=== PATIENT | male | born 1980 | race Caucasian/White ===

== ENCOUNTER → 2016-10-10 | Outpatient (CLI) | payer BC ==
[2016-10-10 13:25] LABS: CHLORIDE,CL 108 mmol/L (98-110); SODIUM,NA 146 mmol/L (136-146)
== END ==
LOC: MW.CHFP 12:12
PROVIDERS: ATTEND Emergency Medicine
DX: E10.9 Type 1 diabetes mellitus without complications (principal)
CPT/HCPCS: 36415; 80048; 80061; 83036

== ENCOUNTER 2017-12-10 20:55 | Emergency (ER) | payer BC, SELFPAY ==
[2017-12-10] MEDS ORDERED: Ketorolac 60 MG/2 ML SDV IM ONE (21:09)
--- NOTE | 2017-12-10 21:11 | EDM.PDOC ---
ED HPI GENERAL MEDICAL PROBLEM - General Chief Complaint: Chest Pain Stated Complaint: POSSIBLE BROKEN RIBS, SORE RIGHT WRIST Time Seen by Provider: 12/10/17 21:03 - History of Present Illness INITIAL COMMENTS - FREE TEXT/NARRATIVE: HISTORY AND PHYSICAL: History of present illness: Patient 37-year-old white male presents with a concern of right wrist and left rib injuries that occurred when he was carrying some pallets and fell he denies other trauma or concern he denies abdominal pain or neck pain or trauma Review of systems: As per history of present illness and below otherwise all systems reviewed and negative. Past medical history: As per history of present illness and as reviewed below otherwise noncontributory. Surgical history: As per history of present illness and as reviewed below otherwise noncontributory. Social history: No reported history of drug or alcohol abuse. Family history: As per history of present illness and as reviewed below otherwise noncontributory. Physical exam: HEENT: Atraumatic, normocephalic, pupils reactive, negative for conjunctival pallor or scleral icterus, mucous membranes moist, throat clear, neck supple, nontender, trachea midline. Lungs: Clear to auscultation, breath sounds equal bilaterally, chest with tenderness in the left rib area 2 through 8 in anteroaxillary line crepitation. Heart: S1S2, regular, negative for clicks, rubs, or JVD. Abdomen: Soft, nondistended, nontender. Negative for masses or hepatosplenomegaly. Negative for costovertebral tenderness. Pelvis: Stable nontender. Genitourinary: Deferred. Rectal: Deferred. Extremities: Right wrist has some mild tenderness over the dorsal aspect is no snuffbox tenderness CMS neurovascular exam is unremarkable there's no crepitation or gross deformity Neuro: Awake, alert, oriented. Cranial nerves II through XII unremarkable. Cerebellum unremarkable. Motor and sensory unremarkable throughout. Exam nonfocal. Diagnostics: X-ray left ribs with chest and x-ray right wrist Therapeutics: Toradol 60 mg IM Impression: #1 left rib injury #2 right wrist injury Definitive disposition and diagnosis as appropriate pending reevaluation and review of above. - Related Data Allergies Allergy/AdvReac Type Severity Reaction Status Date / Time ranitidine HCl [From Zantac] Allergy Hives Verified 06/03/15 06:10 Home Meds: Home Meds Insulin Glarg,Human.Rec.Analog [Lantus] 30 units SQ BEDTIME 06/03/15 [History] Insulin Lispro [HumaLOG] 0 units SQ TIDAC 06/03/15 [History] Past Medical History Cardiovascular History: Reports: None Respiratory History: Reports: None Gastrointestinal History: Reports: None Genitourinary History: Reports: None Musculoskeletal History: Reports: None Endocrine/Metabolic History: Reports: Diabetes, Type I Hematologic History: Reports: None Dermatologic History: Reports: None Social & Family History - Family History HEENT: Reports: None Cardiac: Reports: None ED ROS GENERAL - Review of Systems Review Of Systems: ROS reveals no pertinent complaints other than HPI. ED EXAM, GENERAL - Physical Exam Exam: See Below (See dictation) Course - Orders/Labs/Meds Orders: Active Orders 24 hr Category Date Time Status Ribs 2V w Chest Lt [CR] Stat Exams 12/10/17 21:10 Taken Wrist 2V Rt [CR] Stat Exams 12/10/17 21:09 Taken Meds: Medications Discontinued Medications Generic Name Dose Route Start Last Admin Trade Name Naseem PRN Reason Stop Dose Admin Ketorolac Tromethamine 60 mg 12/10/17 21:09 12/10/17 21:21 Toradol IM 12/10/17 21:10 60 mg ONETIME ONE Administration Departure - Departure Time of Disposition: 21:59 Disposition: Home, Self-Care 01 Condition: Good Clinical Impression: Rib injury, Wrist injury - Discharge Information Referrals: Josué Martinez MD [Primary Care Provider] - Forms: ED Department Discharge Additional Instructions: The following information is given to patients seen in the emergency department who are being discharged to home. This information is to outline your options for follow-up care. We provide all patients seen in our emergency department with a follow-up referral. The need for follow-up, as well as the timing and circumstances, are variable depending upon the specifics of your emergency department visit. If you don't have a primary care physician on staff, we will provide you with a referral. We always advise you to contact your personal physician following an emergency department visit to inform them of the circumstance of the visit and for follow-up with them and/or the need for any referrals to a consulting specialist. The emergency department will also refer you to a specialist when appropriate. This referral assures that you have the opportunity for followup care with a specialist. All of these measure are taken in an effort to provide you with optimal care, which includes your followup. Under all circumstances we always encourage you to contact your private physician who remains a resource for coordinating your care. When calling for followup care, please make the office aware that this follow-up is from your recent emergency room visit. If for any reason you are refused follow-up, please contact the [facility] emergency department at and asked to speak to the emergency department charge nurse. Ultram as prescribed follow-up primary medical doctor as needed as discussed and return as needed as discussed
[2017-12-11 03:47] VITALS: BP 148/100
--- NOTE | 2017-12-11 15:30 | CR ---
EXAM DATE: 12/10/17 PATIENT'S AGE: 37 Patient: ANATOLIY OCOEE Facility: [place], [place] Site . Site : 1980 Study: XRay Extremity Right wrist [id number]/11/2018 9:40:36 PM Ordering Physician: Doctor Pierce Final Report: INDICATION: Wrist pain from a fall TECHNIQUE: Wrist radiograph 3 views right COMPARISON: None FINDINGS: Bones: No acute fractures or aggressive bone lesions are identified. Positive ulnar variance is noted by 5 mm. Joints: The radiocarpal, carpal, and carpometacarpal joints are unremarkable in appearance. Soft tissues: Unremarkable. No radiopaque foreign bodies are seen. IMPRESSION: 1. No acute osseous injuries or abnormalities are noted. Dictated by Angel Chan MD @ 12/10/2017 9:47:01 PM Dictated by: Angel Chan MD @ 12/10/2017 21:47:06 (Electronic Signature) Report Signed by Proxy. TIERRA
--- NOTE | 2017-12-11 15:31 | CR ---
EXAM DATE: 12/10/17 PATIENT'S AGE: 37 Patient: ANATOLIY RENNER Facility: [place], [place] Site . Site : 1980 Study: XRay Chest Left RIBS [id number]/11/2018 9:42:02 PM Ordering Physician: Doctor Pierce Final Report: INDICATION: Trauma TECHNIQUE: Chest and left ribs 3 views. COMPARISON: None FINDINGS: Cardiovascular and mediastinum: Heart size and vasculature are normal in caliber and appearance. Mediastinum is within normal limits. Lungs and pleural spaces: Lungs are clear. No sign of infiltrate or mass. No sign of pleural effusion. No pneumothorax. Bones and soft tissues: Detailed oblique images of the left ribs demonstrate no fractures or bone lesions. IMPRESSION: Unremarkable chest and left ribs. Dictated by Ghanshyam Tubbs MD @ 12/10/2017 9:49:33 PM Dictated by: Ghanshyam Tubbs MD @ 12/10/2017 21:49:37 (Electronic Signature) Report Signed by Proxy. TIERRA
== END 2017-12-10 22:32 | disposition home or self-care (01) ==
LOC: MW.ED 20:55
DX: S69.91XA Unspecified injury of right wrist, hand and finger(s), initial encounter (principal); S29.9XXA Unspecified injury of thorax, initial encounter; E10.9 Type 1 diabetes mellitus without complications; Z88.8 Allergy status to other drugs, medicaments and biological substances; W01.10XA Fall on same level from slipping, tripping and stumbling with subsequent striking against unspecified object, initial encounter
CPT/HCPCS: 71101; 73100; 96372; 99283; J1885